=== PATIENT | female | born 1965 | race Caucasian/White ===

== ENCOUNTER 2016-12-18 08:49 | Inpatient (IN) | payer OTHER ==
[~2016-12-18] VITALS: Ht 160 cm; Wt 101.7 kg
[2016-12-18] VITALS (24 sets, daily range): BP systolic 102–150; BP diastolic 56–85; PULSE 65–95; RESP 13–19; Ht 160 cm; Wt 101.7 kg
[~2016-12-18 08:49] MED LIST: AMPICILLIN/SULB 3 GM/NS (PMX) 100 ML IVPB SCH; ROCURONIUM 50 MG INJ ONE; SOD CHLORIDE 0.9% 1,000 ML IV SCH
[2016-12-18] MEDS ORDERED: SUMA25TA34 PO (09:27)
[2016-12-18] MEDS ORDERED: OMEG1CAP22 PO (09:27)
[2016-12-18] MEDS ORDERED: IBUP-1542 PO (09:28)
[2016-12-18] MEDS ORDERED: ASPI81TA3 PO (09:28)
[2016-12-18] MEDS ORDERED: HYDROCORTISONE 100 MG INJ IV ONE (10:00)
[2016-12-18] MEDS ORDERED: BUPIVACAINE 0.5% (SDV) 30 ML INJ ONE (11:10)
[2016-12-18] MEDS ORDERED: MIDAZOLAM 1 MG/ML 2 ML INJ ONE (11:55)
[2016-12-18] MEDS ORDERED: ONDANSETRON 4 MG INJ ONE ×2 (13:29→16:32)
[2016-12-18] MEDS ORDERED: FAMOTIDINE 20 MG INJ ONE (13:29)
[2016-12-18] MEDS ORDERED: DEXAMETHASONE 4 MG/ML 1 ML INJ ONE (13:29)
[2016-12-18] MEDS ORDERED: FENTAnyl 50 MCG/ML VIAL ONE ×3 (13:33→14:44)
[2016-12-18] MEDS ORDERED: ROPIVACAINE 0.2% 20 ML VIAL ONE (13:43)
[2016-12-18] MEDS ORDERED: FENTAnyl 2MCG/ML-ROPIV 0.2% 100 ML ONE (15:19)
[2016-12-18] MEDS ORDERED: SUGAMMADEX SODIUM 200 MG/2 ML VIAL IV ONE (15:47)
[2016-12-18] MEDS ORDERED: METOCLOPRAMIDE 10 MG INJ IV PRN (16:30)
[2016-12-18] MEDS ORDERED: HYDROmorphONE (0.2 MG/ML) 10ML SYG IV PRN ×2 (16:30)
[2016-12-18] MEDS ORDERED: NALOXONE (0.4 MG/ML) INJ IV PRN (16:30)
[2016-12-18] MEDS ORDERED: MEPERIDINE 25 MG INJ IV PRN (16:30)
[2016-12-18] MEDS ORDERED: KETOROLAC 30 MG INJ IV PRN (16:30)
[2016-12-18] MEDS ORDERED: DIPHENHYDRAMINE 50 MG INJ IV PRN (16:30)
[2016-12-18] MEDS ORDERED: PROCHLORPERAZINE 10 MG INJ IV PRN (16:30)
[2016-12-18] MEDS ORDERED: SUMATRIPTAN 25 MG TAB PO PRN (16:30)
[2016-12-18] MEDS ORDERED: ONDANSETRON 4 MG INJ IV PRN (16:30)
[2016-12-18] MEDS ORDERED: MEPERIDINE 25 MG INJ ONE (16:32)
--- NOTE | 2016-12-18 16:45 | SIPON ---
Date/Time of Note Date/Time of Note DATE: 12/18/16 TIME: 16:43 Operative Report Preoperative Diagnosis Left adrenal mass Postoperative Diagnosis Left adrenal mass Intraperitoneal adhesions Operation/Procedure Performed Laparoscopic left radical adrenalectomy Lap lysis adhesions ureterolysis Surgeon James Saha MD/Asael Lal MD Co-surgeons see signature line licensed sales assistant James Saha and Asael Lal Anesthesia: general Estimated blood loss: 150 - 200 ml's Transfusion Required none Specimen Left adrenal gland + mass enbloc Grafts/Implants none Complications none JAMES SAHA Dec 18, 2016 16:45
[2016-12-18] MEDS: ONDANSETRON 4 MG INJ IV PRN (16:59)
[2016-12-18] MEDS: CEFAZOLIN 2 GM/50 ML (PMX) 50 ML IVPB SCH (17:03)
[2016-12-18] MEDS: D5W-0.45 NACL + KCL 20 MEQ 1,000 ML IV SCH (17:21)
--- NOTE | 2016-12-18 17:28 | CONS ---
DATE OF ADMISSION: 12/18/2016 DATE OF CONSULTATION: 12/18/2016 CHIEF COMPLAINT: Left adrenal mass. HISTORY OF PRESENT ILLNESS: This is a 51-year-old female, who was having pelvic pain. She underwent a workup including a CT scan of abdomen and pelvis. A left adrenal mass was identified, which was greater than [address] guided biopsy was performed, which revealed an adrenal cortical neoplasm favoring adenoma. The patient is now scheduled to undergo a left adrenalectomy laparoscopically. PAST MEDICAL HISTORY: Hypertension. PAST SURGICAL HISTORY: Laparoscopic cholecystectomy, , cystocele repair, partial hysterectomy. ALLERGIES: NO KNOWN DRUG ALLERGIES. SOCIAL HISTORY: Patient smokes 1 to 2 cigarettes per day. She stopped a few months ago. Does not drink alcohol. FAMILY HISTORY: A sister with breast cancer. Her mother has diabetes. PHYSICAL EXAMINATION: CONSTITUTIONAL: Patient appears to be in no acute distress. ABDOMEN: Soft, normal bowel sounds, nondistended, nontender. Hernia examination, none noted. Liver and spleen normal. GENITOURINARY: Kidneys, no CVA tenderness. Bladder, no fullness. EXTREMITIES: No edema. DIAGNOSTIC DATA: CT scan of abdomen and pelvis with and without IV contrast revealed a left adrenal mass approximately 7.5 cm by 5 cm, which enhances with contrast. ASSESSMENT: Left adrenal mass worrisome for a malignant neoplasm, although the biopsy has not shown a malignancy. The mass is greater than 5 cm and enhances with contrast. RECOMMENDATIONS: I spoke with the patient as well as with Dr. Phillips in detail in regards to this patient's situation. I have also reviewed the patient's films. I discussed with the patient the natural history and biology of adrenal masses. The patient understands that her options include, but not limited to, no treatment, open left adrenalectomy, laparoscopic left radical adrenalectomy, ureterolysis, lysis of adhesions, and possible splenectomy. This procedure was explained to the patient in detail, risks and benefits were discussed. She understands risks include, but not limited to, infection, bleeding, damage to adjacent structures, heart problems, lung problems, possibility of need for further surgery, DVT, PE, [place], CVA, nonresolution of symptoms, recurrent symptoms, need for further treatment, need further surgeries, bowel injury, ureteral injury, vascular injury, colonic injury, splenic injury, need to convert to open surgery, inability to complete the surgery. Furthermore, patient understands that at this point, we do not know if the mass is malignant or not malignant. She understands that further sampling of the tissue upon removal will provide further information. All of her questions have been answered, no guarantees given. Patient would like to proceed. Dr. Lal, thank you for the very kind referral of your patient. Dictated By: James Saha MD /lesley/merlyn /Document#: [id number] CC: James Lal MD;*EndCC* [facility]
[2016-12-18 17:45] LABS: BASOPHILS % 0.1 % (0.0-2.0); HEMATOCRIT 38.2 % (37.0-47.0); HEMOGLOBIN 12.2 g/dl (12.0-16.0); LYMPHOCYTES # 1.1 10^3/ul (0.8-2.9); LYMPHOCYTES % 7.1 % (15.0-51.0); MEAN CORPUSCULAR HEMOGLOBIN 28.4 pg (29.0-33.0); MEAN CORPUSCULAR HGB CONC 31.9 g/dl (32.0-37.0); MEAN PLATELET VOLUME 9.7 fl (7.4-10.4); MONOCYTE # 0.3 10^3/ul (0.3-0.9); MONOCYTES % 2.2 % (0.0-11.0); NEUTROPHIL # 13.4 10^3/ul (1.6-7.5); NEUTROPHILS % 90.2 % (39.0-77.0); PLATELET COUNT 313 10^3/UL (140-415); RED BLOOD COUNT 4.29 10^6/ul (4.20-5.40); RED CELL DISTRIBUTION WIDTH 14.6 % (11.5-14.5); WHITE BLOOD COUNT 14.9 10^3/ul (4.8-10.8)
[2016-12-18 17:52] LABS: HOLD TRANSMISSIONS 1
--- NOTE | 2016-12-18 19:00 | OPR ---
DATE OF OPERATION: 12/18/2016 SURGEON: James Lal MD CO-SURGEON: James Saha MD PREOPERATIVE DIAGNOSIS: Left adrenal mass worrisome for neoplasm. POSTOPERATIVE DIAGNOSES: 1. Left-sided renal mass worrisome for neoplasm. 2. Left retroperitoneal fibrosis. 3. Intraperitoneal adhesions. OPERATION PERFORMED: 1. Laparoscopic left radical adrenalectomy. 2. Laparoscopic lysis of adhesions. 3. Laparoscopic left ureterolysis. INDICATIONS FOR PROCEDURE: The patient has a history of a contrast enhancing left renal mass, which is greater than 5 cm. She is scheduled to undergo the above stated procedure. Risks and benefits have been discussed with the patient. All of her questions have been answered. No guarantees given. She would like to proceed. OPERATIVE FINDINGS AT SURGERY: Mass appeared to be well circumscribed about 7 to 8 cm. There was no evidence of metastases, intraperitoneal adhesions were encountered due to the patient's prior abdominal surgeries. OPERATIVE PROCEDURE: Patient was brought to the operative room, underwent general endotracheal tube anesthesia. A Birmingham catheter was placed sterilely. She was then placed in the lateral decubitus position with the left flank up. All the pressure points were accounted for. Axillary roll was placed. Right hip and knees were flexed. Paddles were placed between the legs. The patient was secured against the table using gel roll and tape. The abdomen was then prepped and draped in usual sterile fashion. Abdomen was insufflated supraumbilically, laparoscopic port was placed in the right lower and the left lower quadrant. Laparoscopy was performed. The Veress needle was observed to be within the abdominal cavity without injury to the bowel. The rest of the laparoscopic ports were then placed under direct vision. Intraperitoneal adhesions were encountered. These adhesions required to be taken down in order to gain access to the retroperitoneum. Omental adhesions to the abdominal wall were carefully taken down taking care not to injure the omentum or the bowel. Adhesions between the colon and abdominal wall were also taken down in order to gain access to the white line of Toldt. Again, extreme care was taken not to injure the colon. The white line of Toldt was then incised. Colon was mobilized medially. The colon mesentery was identified and mobilized medially. Dissection was carried from the pelvis all the way to the splenic flexure. At this point, the colon was mobilized further medially. Pulsation of the ureter was identified. Dissection was then carried through the desmoplastic tissues along the ureter in order to identify the ureter and dissected from the scar tissue in this area. This was dissected all the way towards the renal hilum. Care was taken not to devascularize the ureter. Further dissection was then carried along the upper pole of the kidney. The adrenal tumor was then identified. The tail of the pancreas was carefully dissected away from the upper pole of the kidney and the adrenal tumor. These attachments were pedicalized, clipped with Weck clips and divided, and dissected away. At this point, the renal hilum was identified. The renal vein was dissected from the surrounding structures. Dissection was carried until the main adrenal vein was identified entering the renal vein. The renal vein was then dissected from the surrounding structures, then, pedicalized. Two Weck clips were placed distally and 2 were placed proximally. The adrenal vein was then divided. At this point, further dissection was carried between the upper pole of the kidney and the adrenal mass. Care was taken to create a plane within Gerota's fascia to allow margins along the lower pole of the adrenal mass. Therefore, a rim of Gerota's fascia was kept with the adrenal mass as it was dissected off the upper pole of the kidney. In this area the tissues were pedicalized. They were treated with the LigaSure and divided. Next, dissection was carried along the aorta. Posterior attachments of the adrenal gland, 2 adrenal masses and the gland to near the aorta were identified. These attachments were individually pedicalized, they were clipped with Weck clips and divided. Residual attachments were also divided using the intravascular stapler. The posterior attachments of the adrenal gland to the psoas muscle and the posterior abdominal muscles were also pedicalized. These were divided using endovascular stapler. At this point, the posterior attachments, aortic attachments, and lower pole attachments of the adrenal gland had been dissected off. Dissection was then carried laterally. The lateral attachments of the adrenal gland to the ureters were further taken down. Next, dissection was carried towards the upper pole of the adrenal gland. In this area, based on patient's CT scan, this made was very close to the adrenal mass. The spleen was carefully dissected off the adrenal mass. The mass was kept intact. Mass was then dissected circumferentially off the spleen, thereby preserving the splenic vessels and preserving the architecture of the spleen. Residual attachments medially and posteriorly were identified. These were also pedicalized, clipped with Weck clips, and divided. At this point, the adrenal mass and the adrenal gland itself had been dissected off the fossa, it was completely free. The entire specimen en bloc had been resected and was placed into an EndoCatch bag. The adrenal fossa was then carefully examined. No major evidence of bleeding was identified. A small area of bleeding was identified, which was clipped with a Weck clip. Next, this area was further secured using FloSeal. Intraperitoneal pressure was then decreased from 50 mmHg to 7. The area of resection was carefully examined. No evidence of bleeding was identified. The kidney was then taken off the traction. The area was reexamined. No evidence of bleeding was identified. The bowel was carefully examined. Bowel appeared to be intact without any evidence of injury. At this point, attention was paid to closure of the laparoscopic port sites. The Cesar-Schwartz device was used to advance the 0 Vicryl sutures along the upper and lower aspects of each wound and the sutures were placed in this fashion. In the left lower quadrant area, 1 of the sutures that was placed showed some possible bleeding. The area of bleeding was clipped with Weck clips. The laparoscopic ports were then removed under direct vision. Fascia to these port sites were then closed. The left lower quadrant port site, which also had some bleeding, was used to deliver the specimen and also to obtain further control of the bleeding. Therefore, a transverse incision was made along the left lower quadrant incision. Dissection was carried through the subcutaneous tissues onto the anterior fascia. The anterior fascia was opened. Posterior fascia was opened. The peritoneum was entered. The area of bleeding was identified, which appeared to be the epigastric vessel. This was then suture ligated and excellent hemostasis had been obtained. The specimen had also been delivered from this incision. At this point, the anterior posterior fascia as well as the peritoneum were all closed using looped PDS running suture. One suture was brought laterally and they were met in the middle. They were tied to each other. Care was taken not to incorporate the bowel in the abdominal wall closure. The wound was then copiously irrigated. All the wounds were then further irrigated with Betadine. Skin was then closed with tanner. The patient was then placed back in the supine position. She was awakened, extubated, and taken to recovery room in stable condition. Postprocedure condition stable. COMPLICATIONS: None. ESTIMATED BLOOD LOSS: 150 cc. Blood administered none. SPECIMENS: Specimens sent to lab, the left adrenal gland and left adrenal mass en bloc. Dictated By: James Saha MD /lesley/merlyn /Document#: [id number]
[2016-12-18] MEDS ORDERED: VITAMIN A & D 5 GM OINT PACKET TOP ONE (19:25)
[2016-12-18] MEDS: HYDROCORTISONE 100 MG INJ IV SCH (22:52)
[2016-12-19] MEDS: CEFAZOLIN 2 GM/50 ML (PMX) 50 ML IVPB SCH ×2 (00:12→08:06)
[2016-12-19] MEDS: FENTAnyl 2MCG/ML-ROPIV 0.2% 100 ML BAG EPI SCH ×3 (00:15→15:28)
[2016-12-19 02:00] VITALS: BP 102/57; RESP 18
[2016-12-19] MEDS: D5W-0.45 NACL + KCL 20 MEQ 1,000 ML IV SCH ×4 (02:14→22:14)
[2016-12-19 05:39] LABS: BASOPHILS % 0.1 % (0.0-2.0); HEMATOCRIT 33.9 % (37.0-47.0); HEMOGLOBIN 10.7 g/dl (12.0-16.0); LYMPHOCYTES # 1.4 10^3/ul (0.8-2.9); LYMPHOCYTES % 12.5 % (15.0-51.0); MEAN CORPUSCULAR HEMOGLOBIN 28.1 pg (29.0-33.0); MEAN CORPUSCULAR HGB CONC 31.6 g/dl (32.0-37.0); MEAN PLATELET VOLUME 10.1 fl (7.4-10.4); MONOCYTE # 0.8 10^3/ul (0.3-0.9); MONOCYTES % 7.3 % (0.0-11.0); NEUTROPHILS % 79.7 % (39.0-77.0); PLATELET COUNT 302 10^3/UL (140-415); RED BLOOD COUNT 3.81 10^6/ul (4.20-5.40); RED CELL DISTRIBUTION WIDTH 15.1 % (11.5-14.5); WHITE BLOOD COUNT 11.3 10^3/ul (4.8-10.8)
[2016-12-19 06:08] LABS: CALCIUM 8.4 mg/dl (8.4-10.2); CREATININE 0.69 mg/dl (0.44-1.00); POTASSIUM 3.8 mmol/L (3.5-5.1)
[2016-12-19] MEDS: HYDROCORTISONE 100 MG INJ IV SCH ×3 (06:12→22:36)
[2016-12-19 07:49] VITALS: BP 96/54; RESP 15
[2016-12-19 14:05] VITALS: BP 130/60; RESP 16
[2016-12-19] MEDS: SUMATRIPTAN 50 MG TAB PO PRN (14:51)
[2016-12-19] MEDS ORDERED: INFLUENZA VIRUS VACCINE 0.5 ML SYG IM* ONE (17:00)
[2016-12-19 19:15] VITALS: BP 121/60; RESP 18
[2016-12-19] MEDS ORDERED: DIPHENHYDRAMINE 50 MG INJ IV PRN (19:30)
[2016-12-19] MEDS ORDERED: ONDANSETRON 4 MG INJ IV PRN (19:30)
[2016-12-19] MEDS ORDERED: ZOLPIDEM 5 MG TAB PO PRN (19:30)
[2016-12-19] MEDS ORDERED: NALOXONE (0.4 MG/ML) INJ IV PRN (19:30)
[2016-12-19] MEDS ORDERED: HYDROmorphONE 0.2 MG/ML PCA IV SCH (19:30)
[2016-12-19] MEDS: HYDROmorphONE 0.2 MG/ML PCA IV SCH (20:40)
[2016-12-19] MEDS: ONDANSETRON 4 MG INJ IV PRN (21:00)
[2016-12-20] MEDS: D5W-0.45 NACL + KCL 20 MEQ 1,000 ML IV SCH ×4 (01:01→21:34)
[2016-12-20 02:20] VITALS: BP 132/67; RESP 18
[2016-12-20] MEDS: HYDROCORTISONE 100 MG INJ IV SCH ×3 (05:37→22:17)
--- NOTE | 2016-12-20 06:00 | PN ---
DATE: 12/19/2016 SUBJECTIVE: Complaining of severe migraine headache. Apparently, patient is known to have migraine headaches at home and is taking Imitrex for that, and now today experiences attacks of migraine headache. She is taking 100 mg Imitrex at home p.r.n. when headache occurs and she has been on my exam at home taking Imitrex for that and now today he is a. She had meds at home. The ER and it appears she has been getting 25 mg with no effect, so we are going to increase the dose to 100 mg b.i.d. p.r.n. Patient has not been out of bed. She has epidural. No bowel movement. No nausea, no vomiting, probably has passed some gas. LABORATORY: WBC 11,300, hemoglobin 10.7 with neutrophils 79.7%, hematocrit 33.92. Chemistry, basic metabolic panel, sodium and potassium, BUN, creatinine are within normal limits. OBJECTIVE DATA: GENERAL: Awake, alert, and oriented. VITAL SIGNS: Temperature 99.9, heart rate 88 and regular, respirations 16, blood pressure 96/54, saturation 97% 2 L nasal cannula. HEART: Regular. LUNGS: Clear. breathing sounds decrease bases. ABDOMEN: Protuding with fat, tender on pressure or movement. Bowel sounds 2+/4+. EXTREMITIES: Lower extremities, sequential compression devices and no calf tenderness. She cannot move her extremities completely in full range. (She has epidural). ASSESSMENT: This is a 51-year-old female who underwent laparoscopic left adrenalectomy, radical, and lysis of adhesions. Postop so far is stable. Birmingham catheter is in place and draining clear urine. Patient also has history of migraine and she has been experiencing this postop. She is getting Imitrex for that. Pressure compression device on the legs is present. PLAN: Start patient on clear liquids only. Continue other medications as has been ordered by the surgeon. Dictated By: Juan Dao MD /lesley/moisés /Document#: [id number] NINA
[2016-12-20 08:18] VITALS: BP 147/66; RESP 16
[2016-12-20 08:35] LABS: BASOPHILS % 0.3 % (0.0-2.0); EOSINOPHILS # 0.2 10^3/ul (0.0-0.5); EOSINOPHILS % 1.5 % (0.0-7.0); HEMATOCRIT 35.4 % (37.0-47.0); HEMOGLOBIN 11.2 g/dl (12.0-16.0); LYMPHOCYTES # 1.8 10^3/ul (0.8-2.9); LYMPHOCYTES % 16.8 % (15.0-51.0); MEAN CORPUSCULAR HEMOGLOBIN 28.6 pg (29.0-33.0); MEAN CORPUSCULAR HGB CONC 31.6 g/dl (32.0-37.0); MEAN CORPUSCULAR VOLUME 90.5 fl (82.0-101.0); MEAN PLATELET VOLUME 10.2 fl (7.4-10.4); MONOCYTES % 9.2 % (0.0-11.0); NEUTROPHIL # 7.6 10^3/ul (1.6-7.5); NEUTROPHILS % 71.7 % (39.0-77.0); PLATELET COUNT 287 10^3/UL (140-415); RED BLOOD COUNT 3.91 10^6/ul (4.20-5.40); RED CELL DISTRIBUTION WIDTH 15.4 % (11.5-14.5); WHITE BLOOD COUNT 10.6 10^3/ul (4.8-10.8)
[2016-12-20 08:50] LABS: CALCIUM 8.5 mg/dl (8.4-10.2); CREATININE 0.65 mg/dl (0.44-1.00); POTASSIUM 3.9 mmol/L (3.5-5.1)
[2016-12-20] MEDS: HYDROmorphONE 0.2 MG/ML PCA IV SCH (11:03)
[2016-12-20] MEDS: SUMATRIPTAN 50 MG TAB PO PRN ×2 (12:47→23:25)
[2016-12-20] MEDS: ONDANSETRON 4 MG INJ IV PRN (13:00)
[2016-12-20 14:00] VITALS: BP 127/62; RESP 15
--- NOTE | 2016-12-20 15:36 | PN ---
DATE: 12/20/2016 SUBJECTIVE DATA: Postop day number 2, status post left adrenal gland resection, laparoscopic technique and lysis of adhesions. States she feels better. Has been tolerating diet. The migraine attacks is better under control after removal of the epidural. The epidural catheter was removed last night. Has been urinating without Birmingham catheter with no problem. Has passed gas. The BIAZZI NITRATOR OPERATOR is controlling the patient's pain. OBJECTIVE: GENERAL: Alert, awake, and oriented x3. VITAL SIGNS: Temperature 98.2, heart rate 79, respirations 16, blood pressure 147/66, saturation 100 percent. ABDOMEN: Soft. Bowel sounds are present. Dressing is intact. LABORATORY DATA: WBC 10,600, with 71 percent segmented, hemoglobin 11.2, hematocrit 35.4 Chemistry; sodium, potassium, BUN, creatinine, calcium within normal limits. ASSESSMENT AND PLAN: The patient is a 51-year-old patient, day number 2, status post laparoscopic left adrenal gland removal and lysis of the abdominal adhesions due to previous operations. The patient's Birmingham catheter was discontinued last night. The patient is urinating okay. The epidural was removed last night unintentionally and patient now is with patient controlled analgesia and tolerating the pain. The patient has been having migraine attacks and is receiving Imitrex 100 mg as she was taking at home and it appears that since the time the epidural has been discontinued, the attack of the migraine is better under control. The patient is on patient controlled analgesia with Dilaudid. He is on regular diet and has being tolerating. Abdomen is soft. The patient so far is stable. The plan is to continue current care when the patient is having bowel movements and is off the patient controlled analgesics, then patient can be discharged home. Dictated By: Juan Dao MD /lesley/rosangela /Document#: [id number]
[2016-12-20 19:25] VITALS: BP 137/63; RESP 20
[2016-12-21 02:15] VITALS: BP 140/72; RESP 18
[2016-12-21] MEDS: HYDROCORTISONE 100 MG INJ IV SCH ×3 (06:10→21:56)
[2016-12-21 08:24] VITALS: BP 130/60; RESP 18
[2016-12-21] MEDS ORDERED: INFLUENZA VIRUS VACCINE 0.5 ML SYG IM* ONE (09:00)
[2016-12-21 09:58] LABS: BASOPHILS % 0.3 % (0.0-2.0); EOSINOPHILS # 0.2 10^3/ul (0.0-0.5); EOSINOPHILS % 2.3 % (0.0-7.0); HEMATOCRIT 35.8 % (37.0-47.0); HEMOGLOBIN 11.4 g/dl (12.0-16.0); LYMPHOCYTES % 20.2 % (15.0-51.0); MEAN CORPUSCULAR HEMOGLOBIN 28.6 pg (29.0-33.0); MEAN CORPUSCULAR HGB CONC 31.8 g/dl (32.0-37.0); MEAN CORPUSCULAR VOLUME 89.9 fl (82.0-101.0); MONOCYTE # 0.9 10^3/ul (0.3-0.9); MONOCYTES % 8.7 % (0.0-11.0); NEUTROPHIL # 6.7 10^3/ul (1.6-7.5); NEUTROPHILS % 68.2 % (39.0-77.0); PLATELET COUNT 302 10^3/UL (140-415); RED BLOOD COUNT 3.98 10^6/ul (4.20-5.40); RED CELL DISTRIBUTION WIDTH 14.8 % (11.5-14.5); WHITE BLOOD COUNT 9.8 10^3/ul (4.8-10.8)
[2016-12-21] MEDS: ONDANSETRON 4 MG INJ IV PRN (12:13)
[2016-12-21] MEDS: D5W-0.45 NACL + KCL 20 MEQ 1,000 ML IV SCH (12:13)
--- NOTE | 2016-12-21 14:52 | PN ---
Date/Time of Note Date/Time of Note DATE: 12/21/16 TIME: 14:48 Assessment/Plan VTE Prophylaxis VTE Prophylaxis Intervention: SCD's Lines/Catheters IV Catheter Type (from [facility]): Saline Lock Urinary Cath still in place: No Assessment/Plan Assessment/Plan [facility] 1. 51yo woman now three days s/p laparoscopic left adrenalectomy of a large mass , with lysis of adhesions. Still with considerable pain and a tender abdomen. But she has a normal WBC, with no fever and minimal peritoneal signs. So I think post-operative infection is unlikely. * Spoke to Pathology Department; waiting for call back from Dr. Patel. * Anticipate transition from epidural to oral pain medications. * Note normal CBC today and normal electrolytes yesterday; repeat tomorrow. 2. Migraines, worsened she thinks by the Solu-Cortef. * Transition to 40mg qAM and 20mg qPM Solu-Cortef. * Imitrex increased to BID dosing PRN for headache 3. Prevention: * SCDs for DVT prophylaxis * Famotidine for GI protection * Metamucil for better motility 4. Disposition: home with family once epidural is complete and pain is better- controlled. Hair Ratliff MD PhD [phone] Subjective 24 Hr Interval Summary Free Text/Dictation I met the patient this afternoon, and she was in [facility] hospital room 404 with her and son. She has mild persistent abdominal discomfort three days after her laparoscopic adrenalectomy and lysis of adhesions. No bowel movement yet, but she is eating better and has no nausea. No headache at the moment, but she believes that the Decadron is making her migraines worse. She was free of chest pain, dyspnea, cough, or fever. Exam/Review of Systems Vital Signs Vitals Vital Signs Date Time Temp Pulse Resp B/P Pulse Ox O2 Delivery O2 Flow Rate FiO2 12/21/16 08:24 98.0 78 18 130/60 99 12/20/16 08:30 Nasal Cannula 2.0 Intake and Output 12/20/16 12/20/16 12/21/16 15:00 23:00 07:00 Intake Total 600 ml 1800 ml 1050 ml Output Total 1500 ml 1700 ml Balance 600 ml 300 ml -650 ml Exam GENERAL: Alert, friendly, and comfortable-appearing. CVS: Regular rhythm, normal rate, no murmur, good peripheral perfusion. CHEST: Clear breath sounds bilaterally, breathing comfortably on room air. Epidural in place. ABDOMEN: Soft but with moderate tenderness and mild guarding. No hepatosplenomegaly. Bowel sounds normal. EXTREMITIES: Lower extremities with sequential compression devices and no calf tenderness. No arthritis. Symmetric dorsalis pedis pulses, with normal warm feet. NEURO: Oriented, intact executive function and memory, normal speech, cranial nerves/motor/light touch sensation intact. Toes downgoing. Results Result Diagram: 12/21/16 0847 12/20/16 0758 Results 24 hrs Laboratory Tests Test 12/21/16 08:47 White Blood Count 9.8 Red Blood Count 3.98 L Hemoglobin 11.4 L Hematocrit 35.8 L Mean Corpuscular Volume 89.9 Mean Corpuscular Hemoglobin 28.6 L Mean Corpuscular Hemoglobin Concent 31.8 L Red Cell Distribution Width 14.8 H Platelet Count 302 Mean Platelet Volume 10.0 Neutrophils % 68.2 Lymphocytes % 20.2 Monocytes % 8.7 Eosinophils % 2.3 Basophils % 0.3 Nucleated Red Blood Cells % 0.0 Neutrophils # 6.7 Lymphocytes # 2.0 Monocytes # 0.9 Eosinophils # 0.2 Basophils # 0.0 Nucleated Red Blood Cells # 0.0 Medications Medications Current Medications Ketorolac Tromethamine (Toradol) 30 mg Q6H PRN IV PAIN Last administered on 19:37; Admin Dose 30 MG; Start 12/18/16 at 16:30; Stop 12/21/16 at 16:29 Ondansetron HCl 4 mg 4 mg Q6H PRN IV NAUSEA AND/OR VOMITING Last administered on 12/21/16 12:13; Admin Dose 4 MG; Start 12/18/16 at 16:30 Potassium Chloride/Dextrose/ Sod Cl (D5-1/2ns + KCl 20 Meq) 1,000 ml @ 100 mls/ hr Q10H IV Last administered on 12/21/16 12:13; Admin Dose 100 MLS/HR; Start 12/18/16 at 16:14 Hydrocortisone (Solu-Cortef) 20 mg Q8 IV Last administered on 12/21/16 06:10; Admin Dose 20 MG; Start 12/18/16 at 22:00 Naloxone HCl (Narcan) 0.2 mg Q2M PRN IV FOR RESP RATE 8 OR LESS; Start at 16:30 Naloxone HCl (Narcan) 0.2 mg PRN PRN IV DECREASED REPIRATORY RATE; Start at 19:30 Hydromorphone HCl (Dilaudid EXCAVATING SUPERVISOR) Q4PCA IV Last administered on 12/20/16 11:03 ; Admin Dose 6 MG; Start 12/19/16 at 19:30 Ondansetron HCl (Zofran Inj) 4 mg Q6H PRN IV NAUSEA AND/OR VOMITING; Start at 19:30 Diphenhydramine HCl (Benadryl) 25 mg Q6H PRN IV ITCHING; Start 12/19/16 at 19: 30 Sumatriptan Succinate (Imitrex) 100 mg BID PRN PO MIGRAINE HEADACHE Last administered on 12/20/16 23:25; Admin Dose 100 MG; Start 12/20/16 at 23:30 NEMO RATLIFF M.D. Dec 21, 2016 14:52
[2016-12-21] MEDS: PSYLLIUM 28% PACKET PO SCH (17:47)
[2016-12-21] MEDS: HYDROmorphONE 0.2 MG/ML PCA IV SCH (19:57)
[2016-12-21] MEDS: SUMATRIPTAN 50 MG TAB PO PRN (19:58)
[2016-12-21 20:20] VITALS: BP 131/63; RESP 16
[2016-12-21] MEDS: SILVER SULFADIAZINE 1% 25 GM CR TOP SCH (21:55)
[2016-12-21] MEDS ORDERED: SUMATRIPTAN 50 MG TAB PO PRN (22:30)
--- NOTE | 2016-12-21 23:34 | PN ---
DATE: 12/21/2016 Postop day number 3. SUBJECTIVE DATA: States that she feels much better today than yesterday. The pain is better under control. She has been out of bed walking around a little bit in the hallway with help of the nurses. She has been passing gas. No bowel movement. No nausea, no vomiting, no fever. Still has some abdominal pain. The migraine headache is under control with Imitrex 100 mg b.i.d. Solu-Cortef has been adjusted by the medical doctor. Patient is receiving PAST DUE ACCOUNTS CLERK for pain control. The epidural is out. OBJECTIVE DATA: Awake, alert, oriented x3. Appears comfortable. VITAL SIGNS: 98.9 temperature, 84 heart rate, 16 respirations, blood pressure 131/63, saturation 99 percent, 2 L nasal cannula. LABORATORY AND DIAGNOSTIC DATA: WBC is 9800, with 68 percent segmented, which is normal differential. Hemoglobin 11.4, hematocrit 35.8, which has been stable the past 2 days. Chemistry: Sodium 139, potassium 3.9, BUN 9, creatinine 0.65, calcium 8.5 or less, within normal limits. Incentive spirometry 1000 cc. PHYSICAL EXAMINATION: HEART: Regular. LUNGS: Clear. ABDOMEN: Not distended. Soft. Mild tenderness on deep pressure. No guarding. No rebound tenderness. Bowel sounds normal. EXTREMITIES: Lower extremities, no pitting edema. No calf tenderness. ASSESSMENT: A 51-year-old, status post laparoscopic left-sided adrenalectomy, postop day number 3. Patient is on patient- controlled analgesia for pain control, which is patient complaining of a lot of pain, of course. Tolerating regular diet. No bowel movement yet. Today ambulated around the floor. PLAN: Continue current care. When the patient is able to overcome the pain with only p.o. medication, patient can be discharged home. Dictated By: Juan Dao MD /lesley/andrei /Document#: [id number]
[2016-12-22 01:14] VITALS: BP 128/59; RESP 18
[2016-12-22] MEDS: D5W-0.45 NACL + KCL 20 MEQ 1,000 ML IV SCH ×3 (04:21→20:14)
[2016-12-22] MEDS: HYDROCORTISONE 100 MG INJ IV SCH ×2 (05:51→17:44)
[2016-12-22] MEDS: SUMATRIPTAN 50 MG TAB PO PRN ×2 (05:57→21:06)
[2016-12-22 08:00] VITALS: BP 129/61; RESP 18
[2016-12-22] MEDS: PSYLLIUM 28% PACKET PO SCH (08:43)
[2016-12-22] MEDS: SILVER SULFADIAZINE 1% 25 GM CR TOP SCH ×2 (08:43→20:28)
[2016-12-22] MEDS ORDERED: HYDROmorphONE 1 MG/ML SYG IV PRN (09:30)
--- NOTE | 2016-12-22 09:44 | PN ---
Date/Time of Note Date/Time of Note DATE: 12/22/16 TIME: 09:36 Assessment/Plan VTE Prophylaxis VTE Prophylaxis Intervention: SCD's Lines/Catheters IV Catheter Type (from Nrs): Peripheral IV Urinary Cath still in place: No Assessment/Plan Assessment/Plan 51-year-old female: 1. Status post left laparoscopic adrenalectomy POD#4, pain control currently with Dilaudid PRODUCT SAFETY OFFICER, plan to switch to oral medications today. Vital signs remained stable, afebrile Tolerating soft diet Ambulatory Discharge planning once tolerating p.o. medications and off PRODUCT SAFETY OFFICER hopefully in the next 24 hours. Patient is already under the care of state's attorney, she was already given her oral steroids take at home. Follow-up labs in a.m. 2. Migraine headaches: Exacerbated by steroids IV, continue current management including Imitrex and pain medications as needed. Prophylaxis: SCDs for DVT prophylaxis, Protonix for GI prophylaxis especially while on steroids. Disposition: DC PRODUCT SAFETY OFFICER today, start oral pain medications along with IV breakthrough, and encourage ambulation. Hopefully discharge planning in the next 24 to 48 hours Subjective 24 Hr Interval Summary Free Text/Dictation Patient remained stable this morning, she still on Dilaudid PRODUCT SAFETY OFFICER, she has allergies to Percocet does not want [place] but agrees to take tramadol as needed p.o. She understands she needs to get off the Dilaudid PRODUCT SAFETY OFFICER to be able to discharge home based on notes from surgery. She is currently on Solu-Cortef and she says that she already has oral steroids prescribed by his state's attorney for her to take at home at the time of discharge. Exam/Review of Systems Vital Signs Vitals Vital Signs Date Time Temp Pulse Resp B/P Pulse Ox O2 Delivery O2 Flow Rate FiO2 12/22/16 08:00 99.0 81 18 129/61 97 12/21/16 08:15 Nasal Cannula 2.0 Intake and Output 12/21/16 12/21/16 12/22/16 15:00 23:00 07:00 Intake Total 250 ml 1400 ml 1300 ml Output Total 1200 ml 1900 ml Balance 250 ml 200 ml -600 ml Exam Constitutional: alert, obese, oriented, well developed Respiratory: clear to auscultation, normal air movement Cardiovascular: nl pulses, regular rate and rhythm Gastrointestinal: soft, tender (Mild to moderate surgical site.) Musculoskeletal: nl extremities to inspection, nl gait and stance Extremities: normal pulses Neurological: HOLDER PILE DRIVING II-XII intact, nl mental status, nl speech, nl strength Results Result Diagram: 12/21/16 0847 12/20/16 0758 Medications Medications Current Medications Potassium Chloride/Dextrose/ Sod Cl (D5-1/2ns + KCl 20 Meq) 1,000 ml @ 100 mls/ hr Q10H IV Last administered on 12/22/16 04:21; Admin Dose 100 MLS/HR; Start 12/18/16 at 16:14 Naloxone HCl (Narcan) 0.2 mg Q2M PRN IV FOR RESP RATE 8 OR LESS; Start at 16:30 Naloxone HCl (Narcan) 0.2 mg PRN PRN IV DECREASED REPIRATORY RATE; Start at 19:30 Ondansetron HCl (Zofran Inj) 4 mg Q6H PRN IV NAUSEA AND/OR VOMITING; Start at 19:30 Diphenhydramine HCl (Benadryl) 25 mg Q6H PRN IV ITCHING; Start 12/19/16 at 19: 30 Sumatriptan Succinate (Imitrex) 100 mg BID PRN PO MIGRAINE HEADACHE Last administered on 12/22/16 05:57; Admin Dose 100 MG; Start 12/20/16 at 23:30 Silver Sulfadiazine (Thermazene 1% 25 Gm) 1 applic BID TOP Last administered on 12/22/16 08:43; Admin Dose 1 APPLIC; Start 12/21/16 at 21:00 Hydrocortisone (Solu-Cortef) 40 mg DAILY@06 IV Last administered on 12/22/16 05:51; Admin Dose 40 MG; Start 12/22/16 at 06:00 Hydrocortisone (Solu-Cortef) 20 mg DAILY@18 IV ; Start 12/22/16 at 18:00 Psyllium Hydrophilic Mucilloid (Metamucil) 1 pkt DAILY PO Last administered on 12/22/16 08:43; Admin Dose 1 PKT; Start 12/21/16 at 17:00 Hydromorphone HCl (Dilaudid) 1 mg Q3 PRN IV SEDATION; Start 12/22/16 at 09:30; Status UNV Hydromorphone HCl (Dilaudid) 0.5 mg Q3H PRN IV PAIN LEVEL 6-10; Start 12/22/16 at 09:30; Status UNV Tramadol HCl (Ultram) 50 mg Q6H PRN PO PAIN; Start 12/22/16 at 09:30; Status UNV MIRIAM LOGAN Dec 22, 2016 09:44
[2016-12-22] MEDS: PANTOPRAZOLE (EC) 40 MG TAB PO SCH (11:28)
[2016-12-22] MEDS: traMADol 50 MG TAB PO PRN ×2 (11:35→19:02)
[2016-12-22 13:43] VITALS: BP 112/57; RESP 18
--- NOTE | 2016-12-22 15:18 | PN ---
DATE: 12/22/2016 SUBJECTIVE DATA: Postop day number 4 status, post laparoscopy with left adrenal gland removal. She is complaining of abdominal pain mostly on the left lower quadrant at site of the trocar incision and removal of the tumor. She also has been out of bed and walking around a little bit. She had a bowel movement. Today PCI was DC'd and the patient was started on tramadol 50 mg q.6 hours p.r.n., and for breakthrough Dilaudid 0.5 mg IV. OBJECTIVE: Awake and oriented x3. VITAL SIGNS: Stable. No fever. Heart rate 96. ABDOMEN: Abdomen is protruded, soft on the right side. On the left especially because of the left umbilicus, likewise, the left lower quadrant is tender. The wound appears clean. Also site of other trocars was tender. EXTREMITIES: No calf tenderness. LABORATORY: Labs no new lab was done today. Yesterday was within normal limits. ASSESSMENT AND PLAN: A 51-year-old female, status post laparoscopy and left adrenalectomy. Patient's problem postop was exacerbation of the migraine headache, which responded to Imitrex 100 mg b.i.d. p.r.n. and also abdominal pain, which responded to PCI and now today has responded to tramadol and Dilaudid. If the patient continues to respond to tramadol without breakthrough or need for Dilaudid, the patient hopefully can be discharged within 24-48 hours. Dictated By: Juan Dao MD /[email or web address] /Document#: [id number] NINA
[2016-12-22 20:17] VITALS: BP 124/68; PULSE 68; RESP 18
[2016-12-22] MEDS: HYDROmorphONE 1 MG/ML SYG IV PRN (22:30)
[2016-12-23 02:03] VITALS: BP 118/68; PULSE 70; RESP 18
[2016-12-23] MEDS: PANTOPRAZOLE (EC) 40 MG TAB PO SCH (05:53)
[2016-12-23] MEDS: HYDROmorphONE 1 MG/ML SYG IV PRN ×2 (05:53→13:00)
[2016-12-23] MEDS: HYDROCORTISONE 100 MG INJ IV SCH ×2 (05:53→18:17)
[2016-12-23] MEDS: D5W-0.45 NACL + KCL 20 MEQ 1,000 ML IV SCH ×2 (05:57→14:19)
[2016-12-23 07:30] VITALS: BP 114/58; RESP 18
[2016-12-23] MEDS: traMADol 50 MG TAB PO PRN ×2 (08:56→19:33)
[2016-12-23] MEDS: SILVER SULFADIAZINE 1% 25 GM CR TOP SCH (09:05)
[2016-12-23] MEDS: PSYLLIUM 28% PACKET PO SCH (09:05)
--- NOTE | 2016-12-23 12:39 | PN ---
Date/Time of Note Date/Time of Note DATE: 12/23/16 TIME: 12:23 Assessment/Plan VTE Prophylaxis VTE Prophylaxis Intervention: SCD's Lines/Catheters IV Catheter Type (from Nrsg): Peripheral IV Urinary Cath still in place: No Assessment/Plan Assessment/Plan 51-year-old female: 1. Status post left laparoscopic adrenalectomy POD#5, Off Dilaudid RETURNED MATERIALS INSPECTOR, pain controlled with Tramadol Tolerating soft diet Ambulatory Discharge planning today with home health for wound care if OK with Dr Dao Patient is already under the care of cam maker, she was already given her oral steroids to take at home. 2. Migraine headaches: Exacerbated by steroids IV, continue current management including Imitrex and pain medications as needed at discharge. Prophylaxis: SCDs for DVT prophylaxis, Protonix for GI prophylaxis especially while on steroids. Disposition: Pain controlled, and encourage ambulation. Hopefully discharge plan to home with for wound care today. Subjective 24 Hr Interval Summary Free Text/Dictation Patient's pain controlled with Tramadol D/c home today if OK with Dr Dao Exam/Review of Systems Vital Signs Vitals Vital Signs Date Time Temp Pulse Resp B/P Pulse Ox O2 Delivery O2 Flow Rate FiO2 12/23/16 07:30 98.1 94 18 114/58 96 12/23/16 02:03 Room Air 12/21/16 08:15 2.0 Intake and Output 12/22/16 12/22/16 12/23/16 15:00 23:00 07:00 Intake Total 2100 ml 1200 ml Output Total 1000 ml 1000 ml Balance 1100 ml 200 ml Exam Constitutional: alert, oriented, well developed Respiratory: clear to auscultation, normal air movement Cardiovascular: nl pulses, regular rate and rhythm Gastrointestinal: other (TTP post surgical site ), soft Musculoskeletal: nl extremities to inspection Extremities: normal pulses, other (no edema, clubbing or cyanosis ) Neurological: SOFTWARE DEPLOYMENT ENGINEER II-XII intact, nl mental status, nl speech, nl strength Results Result Diagram: 12/21/16 0847 12/20/16 0758 Medications Medications Current Medications Potassium Chloride/Dextrose/ Sod Cl (D5-1/2ns + KCl 20 Meq) 1,000 ml @ 100 mls/ hr Q10H IV Last administered on 12/22/16t 04:21; Admin Dose 100 MLS/HR; Start 12/18/16 at 16:14 Naloxone HCl (Narcan) 0.2 mg Q2M PRN IV FOR RESP RATE 8 OR LESS; Start at 16:30 Naloxone HCl (Narcan) 0.2 mg PRN PRN IV DECREASED REPIRATORY RATE; Start at 19:30 Ondansetron HCl (Zofran Inj) 4 mg Q6H PRN IV NAUSEA AND/OR VOMITING; Start at 19:30 Diphenhydramine HCl (Benadryl) 25 mg Q6H PRN IV ITCHING; Start 12/19/16 at 19: 30 Sumatriptan Succinate (Imitrex) 100 mg BID PRN PO MIGRAINE HEADACHE Last administered on 12/22/16 21:06; Admin Dose 100 MG; Start 12/20/16 at 23:30 Silver Sulfadiazine (Thermazene 1% 25 Gm) 1 applic BID TOP Last administered on 12/23/16 09:05; Admin Dose 1 APPLIC; Start 12/21/16 at 21:00 Hydrocortisone (Solu-Cortef) 40 mg DAILY@06 IV Last administered on 12/23/16 05:53; Admin Dose 40 MG; Start 12/22/16 at 06:00 Hydrocortisone (Solu-Cortef) 20 mg DAILY@18 IV Last administered on 12/22/16 17:44; Admin Dose 20 MG; Start 12/22/16 at 18:00 Psyllium Hydrophilic Mucilloid (Metamucil) 1 pkt DAILY PO Last administered on 12/23/16 09:05; Admin Dose 1 PKT; Start 12/21/16 at 17:00 Hydromorphone HCl (Dilaudid) 1 mg Q3 PRN IV SEDATION Last administered on 05:53; Admin Dose 1 MG; Start 12/22/16 at 09:30 Hydromorphone HCl (Dilaudid) 0.5 mg Q3H PRN IV PAIN LEVEL 6-10 Last administered on 12/22/16 14:08; Admin Dose 0.5 MG; Start 12/22/16 at 09:30 Tramadol HCl (Ultram) 50 mg Q6H PRN PO PAIN Last administered on 12/23/16 08: 56; Admin Dose 50 MG; Start 12/22/16 at 09:30 Pantoprazole (Protonix Tab) 40 mg DAILY@06 PO Last administered on 12/23/16t 05 :53; Admin Dose 40 MG; Start 12/22/16 at 10:00 MIRIAM LOGAN Dec 23, 2016 12:39
--- NOTE | 2016-12-23 12:53 | PDOCDIS ---
Discharge Instructions CONDITION Patient Condition: Guarded HOME CARE INSTRUCTIONS: Diet Instructions: RegularSpecial Diet: SOFT DIET ACTIVITY: Activity Restrictions: Slowly Increase Activity Rest between Activity Avoid heavy lifting Do not Drive Bathing Restrictions: Shower FOLLOW UP/APPOINTMENTS Follow-up Plan Follow up with PCP within 1 week Follow up with Dr Lal in 7 to 10 days Home Health for wound care MIRIAM LOGAN Dec 23, 2016 12:53
[2016-12-23] MEDS ORDERED: SILV25CR7 TOP (12:59)
[2016-12-23] MEDS ORDERED: TRAM50TA2 PO (12:59)
[2016-12-23 13:32] LABS: BASOPHILS % 0.3 % (0.0-2.0); EOSINOPHILS # 0.3 10^3/ul (0.0-0.5); EOSINOPHILS % 3.6 % (0.0-7.0); HEMATOCRIT 37.3 % (37.0-47.0); HEMOGLOBIN 12.1 g/dl (12.0-16.0); LYMPHOCYTES # 2.1 10^3/ul (0.8-2.9); LYMPHOCYTES % 27.3 % (15.0-51.0); MEAN CORPUSCULAR HEMOGLOBIN 29.1 pg (29.0-33.0); MEAN CORPUSCULAR HGB CONC 32.4 g/dl (32.0-37.0); MEAN CORPUSCULAR VOLUME 89.7 fl (82.0-101.0); MEAN PLATELET VOLUME 9.8 fl (7.4-10.4); MONOCYTE # 0.7 10^3/ul (0.3-0.9); MONOCYTES % 8.5 % (0.0-11.0); NEUTROPHIL # 4.7 10^3/ul (1.6-7.5); PLATELET COUNT 353 10^3/UL (140-415); RED BLOOD COUNT 4.16 10^6/ul (4.20-5.40); RED CELL DISTRIBUTION WIDTH 14.7 % (11.5-14.5); WHITE BLOOD COUNT 7.8 10^3/ul (4.8-10.8)
[2016-12-23 13:49] LABS: MAGNESIUM 1.8 mg/dl (1.7-2.5); PHOSPHORUS 4.5 mg/dl (2.5-4.9)
[2016-12-23 13:50] LABS: CALCIUM 9.7 mg/dl (8.4-10.2); CREATININE 0.73 mg/dl (0.44-1.00); POTASSIUM 3.8 mmol/L (3.5-5.1)
== END 2016-12-23 19:35 | disposition home health service (06) | DRG 615 ==
LOC: REC 08:49 → MS1 17:55
PROVIDERS: ADMIT Internal Medicine; ATTEND Surgery Surgical Oncology
PROC: 0TN74ZZ Release Left Ureter, Percutaneous Endoscopic Approach (ICD-10-PCS; 2016-12-18)
PROC: 0DNS4ZZ (ICD-10-PCS; 2016-12-18)
PROC: 0DNM4ZZ Release Descending Colon, Percutaneous Endoscopic Approach (ICD-10-PCS; 2016-12-18)
PROC: 0GT24ZZ Resection of Left Adrenal Gland, Percutaneous Endoscopic Approach (ICD-10-PCS; principal; 2016-12-18 11:00)
DX: D35.02 Benign neoplasm of left adrenal gland (principal); N13.5 Crossing vessel and stricture of ureter without hydronephrosis; I10 Essential (primary) hypertension; G43.909 Migraine, unspecified, not intractable, without status migrainosus; K66.0 Peritoneal adhesions (postprocedural) (postinfection); Z87.891 Personal history of nicotine dependence
CPT/HCPCS: 80048; 83735; 84100; 85025; 86850; 86900; 86901; 86920; 87086; 88307; 90686; J0295; J0690; J1100; J1170; J1200; J1644; J1720; J1885; J2175; J2250; J2405; J2795; J3010; J3480

== ENCOUNTER 2018-01-24 13:18 | Observation (INO) | END 2018-01-27 15:55 | disposition home or self-care (01) ==